=== PATIENT | male | born 1965 ===

== ENCOUNTER 2019-12-28 02:38 | Outpatient (CLI) | payer SELFPAY ==
--- NOTE | 2019-12-28 13:45 | DI.CTLCSR_ITS ---
EXAM: CT CHEST LUNG CANCER SCREEN CLINICAL HISTORY: SCREENING FOR LUNG CA, CURRENT SMOKER, F17.210 TECHNIQUE: COMPARISON: No exams were available for comparison FINDINGS: CT examination of the chest was performed utilizing low-dose lung cancer screening protocol. Images obtained through the upper abdomen show unremarkable appearance visualized portions of the tessa er, spleen, pancreas, adrenals, and kidneys. No mediastinal or hilar adenopathy. Note is made of coronary artery calcification. Cardiac size is within normal limits. No pleural effusion. Tracheobronchial tree appears intact. The lungs are clear. There is a less than 2 millimeter in diameter laterally located nodule in the r ight upper lobe which is noncalcified, no other pulmonary nodule seen. . IMPRESSION: Negative LDCT. Coronary artery calcification noted. Lung RADS Cat 1 - Negative: No nodules and definitely benign nodules
== END 2019-12-28 02:58 ==
PROVIDERS: PCP Nurse Practitioner Family; Visit Provider Nurse Practitioner Family
DX: Z12.2 Encounter for screening for malignant neoplasm of respiratory organs (principal); F17.210 Nicotine dependence, cigarettes, uncomplicated; R91.1 Solitary pulmonary nodule
CPT/HCPCS: G0297